=== PATIENT | male | born 1935 | race Caucasian/White ===

== ENCOUNTER 2016-04-07 15:56 | Inpatient (IN) | payer MEDICARE, OTHER ==
--- NOTE | ~2016-04-07 | DS ---
Discharge Summary [facility] [address] [place]. [address] NAME: LILIANA BURGOS JR : 37 STATUS : DIS IN PAT#: [id number] AGE: 80 ADM/REG DATE : 04/07/16 MR#: [id number] REPORT SERV DATE: 04/18/16 DICTATED BY: MARGY DURANT DATE: 04/17/16 REPORT STATUS : Draft TRANSCRIBED BY: JANELLE DATE: 04/17/16 Data Collection from hospitalization DISCHARGE DIAGNOSIS(ES): 1. Left leg pain secondary to left leg cellulitis. 2. Left leg cellulitis. 3. Type 2 insulin-dependent diabetes mellitus - uncontrolled. 4. Thrombocytopenia. 5. Stage III-IV chronic kidney disease. 6. History of gout. 7. Debility with history of wheelchair dependence. 8. Coronary artery disease. 9. Benign prostatic hypertrophy. 10.Chronic obstructive pulmonary disease. 11.Anxiety and depression. 12.Gastroesophageal reflux disease. 13.Hyperlipidemia. 14.History of chronic systolic congestive heart failure - ejection fraction 35%. 15.Abdominal aortic aneurysm. 16.History of fatty liver. 17.History of gout. 18.Bilateral cataract. 19.Past history of tobacco use. CONSULTATIONS: None. PROCEDURES PERFORMED: None. MEDICATIONS: Duricef 1000 mg twice a day, Uloric 40 mg every morning, Lasix 40 mg every morning, Neurontin 800 mg three times a day, Atarax 25 mg every six hours as needed, Lantus 40 units subcutaneously at bedtime, Humalog injection insulin 10 units subcutaneously before meals, Zoloft 50 mg every morning, Hytrin 2 mg three times a day, Ultram 50 mg every six hours as needed, Desyrel 100 mg at bedtime. CONDITION AT DISCHARGE: Stable. DISPOSITION: The patient was discharged home on a mechanical soft/chopped meat/1800-calorie diabetic diet with activities as instructed. He would follow up with his primary care physician in 7-10 days following discharge. HOSPITAL COURSE: This is a 80-year-old man, who presented to the [facility] Emergency Room from home with complaints of left leg pain, left leg cellulitis, and uncontrolled diabetes. The patient has a long history of diabetes and is known to be noncompliant with medical management. He reports that he does give himself insulin before he eats and before going to bed, but does not check his sugar. He had noticed increased thirst and urination. He did report that his left leg pain started about two weeks prior to this admission. He reports that he initially noted redness from the left ankle that travelled up to his left knee. He reported that he has not had any medical provider to evaluate the left leg pain and redness. Discharge Summary [facility] [id number] [place]. [address] NAME: LILIANA BURGOS JR : 37 STATUS : DIS IN PAT#: [id number] AGE: 80 ADM/REG DATE : 04/07/16 MR#: [id number] REPORT SERV DATE: 04/18/16 DICTATED BY: MARGY DURANT DATE: 04/17/16 REPORT STATUS : Draft TRANSCRIBED BY: JANELLE DATE: 04/17/16 The patient reports that his left leg pain was 10/10. He reports the pain was worse with movement and when touch. He reports that he has been wheelchair-bound for several years. He was admitted to the hospital at this time for further evaluation and treatment. Upon admission, left leg x-ray revealed intact left tibia and fibula. Creatinine level was 1.43. Creatinine was 1.22. IV morphine was going to be given as needed for pain control. Gabapentin was going to be given to aid with his neuropathic pain and tramadol for extra mile as needed pain complaints. We would obtain a uric acid level to ensure pain and redness secondary to some kind of gout flare-up. IV antibiotic with Ancef was continued. He was felt to be at risk for sepsis. His home regimen of Humalog and Lantus were continued. He would remain on sliding scale insulin. Hemoglobin A1c was going to be checked. He was placed on an 1800-calorie diabetic mechanical soft diet with chopped food. Nasal cannula O2 would be continued. Lasix would be resumed. On 04/09/2016, he denied any complaints of shortness of breath, chest pain, nausea, vomiting, or abdominal pain. He did complain of left knee pain that was worse with movement, but he said it had been "a little better." The patient said his appetite was not good that morning. Repeat uric acid level was 4.3. His home regimen of Uloric would be continued. He underwent diabetes education. The following day, he was evaluated by Physical Therapy. He said he was feeling better. He did complain of left knee pain with movement, but he could tolerate sitting up in a chair. The patient reports that he has home O2, which he uses as needed. Hemoglobin A1c was 12.3. Discharge planning was performed. On 04/11/2016, he denied any shortness of breath, chest pain, nausea, vomiting, or abdominal pain. He did have a bowel movement. He has left leg pain. Discharge instructions were given. Due to his improved and stable condition, he was discharged home to be followed by home health care with the above-stated instructions. Information collected by: Tangela Williamson I submit the above information as my discharge summary. DUANE/JANELLE Margy Durant M.D. / [id number] CC: Leticia Gray M.D.
--- NOTE | ~2016-04-07 | HP ---
History And Physical [facility] [address] [place]. [address] NAME: LILIANA BURGOS JR : 37 STATUS : ADM IN PAT#: [id number] AGE: 80 ADM/REG DATE : 04/07/16 MR#: [id number] REPORT SERV DATE: 04/08/16 DICTATED BY: MARGY DURANT DATE: 04/08/16 REPORT STATUS : Draft TRANSCRIBED BY: MODJericho DATE: 04/08/16 DATE OF ADMISSION: 04/07/2016 DICTATED BY: Shantal Pappas NP CHIEF COMPLAINT: Left leg pain. HISTORY OF PRESENT ILLNESS: The patient is a 80-year-old male, who was admitted to [facility] Emergency Room from home for complaint of left leg pain, left leg cellulitis, and uncontrolled diabetes. The patient with a long history of diabetes and known to be not compliant with medical management. The patient reports he does give himself insulin before he eats and before going to bed, but does not check his sugar. The patient had noted increase of thirst and urination. The patient reports left leg pain started two weeks ago. He reports he initially had noted redness from his left ankle that had traveled up to his left knee. The patient reports he has not had any medical provider to evaluate his left leg pain and redness. The patient reports his left leg pain in a 0 to 10 pain scale is 10/10. He reports the pain worsened with the movement and when touched. The patient reports he has been wheelchair bound for several years. ALLERGIES: NO KNOWN DRUG ALLERGIES. CODE STATUS: Full code. MEDICATIONS: Home medications include Lantus 35 units subcu at bedtime, Humalog 8 units subcu before meals, Lasix 40 mg p.o. daily, gabapentin 800 mg p.o. three times a day, Atarax 25 mg p.o. every 6 hours p.r.n., Zoloft 50 mg p.o. daily, Hytrin 2 mg capsule three times a day, tramadol 50 mg tablet every 6 hours p.r.n., trazodone 100 mg p.o. at bedtime. Currently also has Ancef 1 g IV q.6 started 04/07/2016. PAST MEDICAL HISTORY: Include: 1. Coronary artery disease with a negative catheterization in 2011 with two stents placed. 2. Chronic kidney disease, stage 3 to 4. 3. 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 4. BPH. 5. COPD with a home O2 use intermittently at 2 L/minute. 6. Anxiety and depression. 7. GERD. 8. Hyperlipidemia. 9. History of chronic systolic congestive heart failure with EF of 35%. 10.History of abdominal aortic aneurysm with last abdomen and pelvis CT scan on 07/30/2015 at [facility] revealing abdominal aortic aneurysm measuring at 32 x 36 mm transversely. The patient reports he is being followed by Dr. Laurent. 11.History of fatty liver, history of gout, history of chelation therapy x4, and history of bilateral cataracts with cataract surgery two years ago. History And Physical [address] [address] NAME: LILIANA BURGOS JR : 37 STATUS : ADM IN [facility]#: [id number] AGE: 80 ADM/REG DATE : 04/07/16 MR#: [id number] REPORT SERV DATE: 04/08/16 DICTATED BY: MARGY DURANT DATE: 04/08/16 REPORT STATUS : Draft TRANSCRIBED BY: JANELLE DATE: 04/08/16 PAST SURGICAL HISTORY: History of cardiac stent x2, bilateral cataract surgery two years ago, penile implant, circumcision, and cholecystectomy. SOCIAL HISTORY: The patient with a history of smoking two pack per day for 50 years, but had quit approximately 9 to 10 years ago. The patient denies any alcohol use. He is and lives alone. He has two children, one had committed suicide and one is living, but the patient reports he has not had any contact with him. The patient reports he lives alone, but a friend lives with him who assists with his care. The patient is an [employer] and right-handed. FAMILY HISTORY: Includes diabetes. No history of stroke or heart disease. REVIEW OF SYSTEMS: The patient denies any problem with dizziness. He denies any complaint of blurred vision. He reports having some dry throat. Had cough with yellow phlegm which he reports this is chronic since he has been diagnosed with COPD approximately 18 years ago. He reports he uses oxygen at home at least 2 L, but he uses it on and off. The patient denies any complaint of shortness of breath, denies complaint of chest pain. The patient reports he does follow a stenotypist, but has not seen him for almost two years. The patient denies any complaint of nausea, vomiting, or abdominal pain. He reports last bowel movement was two days ago. He reports he has average bowel movement about two to three days. He denies any history of constipation. The patient reports he does note he is urinating "too much." The patient also reports having issue with gout, but has not had any gout flare-up. He reports his left leg pain as dictated above had started two weeks ago with redness starting from the ankle to the knees. He is wheelchair dependent. He reports he does have a history of diabetic neuropathy and does take Neurontin for pain relief. The patient reports he had some right hip pain, but this had improved. His main complaint is his left knee pain. PHYSICAL EXAMINATION: VITAL SIGNS: Temperature of 97.9, pulse of 59, BP of 112/60, respiratory rate 16, and O2 saturation at 2 L/minutes of nasal cannula is 96%. Weight on admission 90.29 kg with BMI of 30.3. GENERAL: The patient is a pleasant male in no acute distress noted. HEENT: Normocephalic. Nonicteric bilaterally. PERRL with pupils measuring 2 mm bilaterally. NECK: Moves the neck freely without pain. No pain on palpation. CHEST: No chest deformity noted. LUNGS: Clear to auscultation bilaterally. Nasal cannula O2 in use. CARDIOVASCULAR: Regular rate and rhythm. S1, S2 noted. No murmurs noted or heard. ABDOMEN: Obese. Positive bowel sounds noted. Soft. Nontender. No bruits noted. GENITOURINARY: The patient is noted to have clear yellow urine in urinal. EXTREMITIES: Noted bilateral upper extremities with equal and good strength of 5/5. Some arthritic changes in the hands. Lower extremities: Right lower extremity with good strength of 5/5 with some arthritic changes. No pain on palpation. No edema noted in bilateral lower extremities. Left lower extremity: Left knee pain with movement and History And Physical [address] [address] NAME: LILIANA BURGOS : 37 STATUS : ADM IN [facility]#: [id number] AGE: 80 ADM/REG DATE : 04/07/16 MR#: [id number] REPORT SERV DATE: 04/08/16 DICTATED BY: MARGY DURANT DATE: 04/08/16 REPORT STATUS : Draft TRANSCRIBED BY: JANELLE DATE: 04/08/16 palpation just below the patella. Noted no edema, but redness below the patella laterally. No redness noted past the patella. Ankle is without edema or redness. Strength in left leg is 4/5 likely secondary to pain. IMAGING: Chest x-ray obtained on 04/07/2016 shows COPD without focal air space disease. Left leg x-ray revealed intact left tibia and fibula. LABORATORY DATA: Labs on 04/07/2016 revealed sodium of 131, potassium 4.1, chloride 91, CO2 of 29, BUN 26, creatinine 1.43, GFR 46, glucose of 440. WBC was 7.4, hemoglobin 14.0, hematocrit 40.0, and platelets of 104. AST of 85, ALT of 71, total protein 8.0, bilirubin 0.8, albumin 3.6, and ALP of 110. 04/08/2016 labs revealed sodium better at 138, potassium 3.9, chloride 99, CO2 of 31, BUN 26, creatinine 1.22, and glucose of 251. ASSESSMENT: 1. Left leg pain likely secondary to left leg cellulitis, question if the pain could be related to a gout flare-up versus cellulitis. 2. Left leg cellulitis. 3. Insulin-dependent diabetes mellitus type 2, uncontrolled. 4. Thrombocytopenia. 5. Chronic kidney disease, stage 3 to 4. 6. Hyponatremia, improving. 7. Metabolic alkalosis, mild. 8. Hypoxia, likely chronic secondary to history of chronic obstructive pulmonary disease. 9. History of chronic obstructive pulmonary disease without exacerbation. 10.History of chronic systolic congestive heart failure without exacerbation. 11.History of coronary artery disease, status post cardiac stent. 12.History of abdominal aortic aneurysm. 13.History of gout. 14.Wheelchair dependent. PLAN: 1. Continue pain management at this time with IV morphine p.r.n. We will reconciliate home medications and continue gabapentin to aid with the neuropathic pain and tramadol for extra mild p.r.n. pain complaint. We will obtain uric acid to ensure pain and redness secondary to some kind of gout flare-up. We will refer the patient to PT for evaluation and treatment once pain better controlled. The patient is a wheelchair dependent. The patient is at risk for poor recovery. 2. We will continue current IV antibiotic of Ancef. Monitor lab studies. The patient is at risk for sepsis. 3. We will resume home regimen of Humalog with 8 units subcu q.a.c. and Lantus 35 units q.h.s. Continue sliding scale, and if needed, we will adjust long-acting for better blood sugar control. Check hemoglobin A1c with a.m. labs to see how the patient's diabetes had been controlled in the last three months, likely not well controlled. The patient does have does have issue with compliance with his diabetes. We will refer the History And Physical [address] [place]. [address] NAME: LILIANA BURGOS JR : 37 STATUS : ADM IN [facility]#: [id number] AGE: 80 ADM/REG DATE : 04/07/16 MR#: [id number] REPORT SERV DATE: 04/08/16 DICTATED BY: MARGY DURANT DATE: 04/08/16 REPORT STATUS : Draft TRANSCRIBED BY: JANELLE DATE: 04/08/16 patient to a heating engineer. The patient is at risk for diabetic ketoacidosis. 4. We will closely monitor platelet. Admission platelet was 104, was decreased to 99. We will hold off on any heparin for deep venous thrombosis prophylaxis. We will monitor platelets. If this goes up, we will resume deep venous thrombosis prophylaxis. 5. The patient's admission creatinine was 1.43, better this morning at 1.22. We will continue to monitor renal function. The patient is at risk for acute kidney injury. 6. The patient's admission sodium was 131, repeat this morning was 138. We will hold off on low-sodium diet. We will just continue 1800 ADA diet and mechanical soft and chopped food. If his sodium increases, we will likely need to resume back to low- sodium . The patient is at risk for cardiac arrhythmia. 7. We will continue nasal cannula O2 to keep saturation O2 greater than or equal to 90%. Place the patient on bronchodilator protocol. The patient with negative chest x-ray. We will closely monitor for any signs and symptoms of increased shortness of breath. The patient is at risk for chronic obstructive pulmonary disease exacerbation. 8. We will closely monitor for any lower extremity edema, though the patient on home regimen of Lasix, which we will resume. Monitor weight. The patient is at risk for congestive heart failure exacerbation. 9. Address POLST form with the patient. The patient desires full code. POLST form completed and filed in chart. Monitor for any signs symptoms of acute coronary syndrome. The patient with a history of coronary artery disease, status post stent. The patient is at risk for acute myocardial infarction. 10.Once the patient's acute medical issues resolve or improve, we will plan for discharge back to home and to follow up with primary care physician. RH/MODL Margy Durant M.D. / [id number] CC: Leticia Gray M.D.
[2016-04-07 13:53] LABS: BASOPHILS 0.3 %; BASOPHILS ABSOLUTE 0.02 10/3/uL (0.0-0.16); EOSINOPHILS 2.4 %; EOSINOPHILS ABSOLUTE 0.18 10/3/uL (0.0-0.53); IMMATURE GRANULOCYTES 0.7 %; IMMATURE GRANULOCYTES ABSOLUTE 0.05 10/3/uL (0.0-0.11); LYMPHOCYTES 12.2 %; LYMPHOCYTES ABSOLUTE 0.91 10/3/uL (0.67-4.30); MEAN CORPUSCULAR HEMOGLOB 32.5 pg (26.0-34.0); MEAN CORPUSCULAR VOLUME 92.8 fL (80-100); MEAN PLATELET VOLUME 12.5 fL (9.2-13.0); MONOCYTES 7.3 %; MONOCYTES ABSOLUTE 0.54 10/3/uL (0.21-1.20); NEUTROPHILS 77.1 %; NEUTROPHILS ABSOLUTE 5.74 10/3/uL (2.02-8.40); PLATELET COUNT 104 10/3/uL (150-400); RBC DISTRIBUTION WIDTH 12.3 % (12.0-16.0); RED CELL COUNT 4.31 10/6/uL (4.7-6.1); WHITE BLOOD CELLS 7.4 10/3/uL (4.5-10.5)
[2016-04-07 13:54] LABS: ER CBC TAT 0 Hrs 07 MinsNP; MANUAL DIFF NO %
[2016-04-07 14:09] LABS: A/G RATIO 0.8 (0.7-1.9); ALBUMIN 3.6 G/DL (3.5-5.0); ALKALINE PHOSPHATASE 110 U/L (45-117); BUN (BLOOD UREA NITROGEN) 26 MG/DL (6-23); CALCIUM, SERUM 9.4 MG/DL (8.5-10.4); CHLORIDE, SERUM 91 MMOL/L (96-112); CO2 (CARBON DIOXIDE) 29 MMOL/L (24-34); CREATININE 1.43 MG/DL (0.70-1.30); GFR AFRICAN AMERICAN 54 ML/MIN (>=60); GFR NON AFRICAN AMERICAN 46 ML/MIN (>=60); GLOBULIN 4.4 G/DL (2.5-4.1); GLUCOSE, SERUM 440 MG/DL (60-99); POTASSIUM, SERUM 4.1 MMOL/L (3.5-5.3); SGOT(AST) 85 U/L (5-40); SGPT(ALT) 71 U/L (5-65); SODIUM, SERUM 131 MMOL/L (135-148); TOTAL BILIRUBIN 0.8 MG/DL (0-1.2)
[2016-04-07 15:44] LABS: ACETONE NEG
[~2016-04-07 15:56] MED LIST: *UNABLE1; AMB10 PO; AMB5 PO; ARIMIDEX1 PO; ASAB PO; ATARAX50B PO; AUG500 PO; CASTOR TOP; CIP5 PO; COLCRYS0.6 MG PO; DEPO-TESTOS200 MG/ML IM; DUONEB INH; FIBER PILL PO; GLUCPH PO; HUMALOG SC; HUMALOGPEN SC; HUMALOGPEN SQ; HUMI PO; HYT2 PO; INDO50 PO; KDUR20 PO; KLOR-CON 1010 MEQ PO; KLOR-CON M2020 MEQ PO; L20 PO; L40 PO; LANTUS; LANTUS SC; LANTUSCART SC; LYRICA50 PO; NASAL MOIST0.65 % NAS; NEUR300 PO; NOVOLOG SC; NOVOPEN SC; OTC VITAMIN D PO; PERCOCET1 TA2 PO; PRAVACHOL40 MG PO; PRILOSEC OTC20 MG PO; PRIN5 PO; PROAIR HFA INH; PROTONIX PO; REFRESH OPH; SEPTRA DS1 TAB PO; SPIRIVA INH; TESTOST CYP200 MG/ML IM; TOPXL25 PO; ULORIC40 MG PO; ULTRAM50 PO; VISINE0.05 % OP; VITAMIN D1000 UNI1 PO; VITAMIN D31000 UNIT PO; VITAMIN D400 UNI1 PO; VITC500 PO; VITD PO; ZINC PO; ZOL50 PO; [UNRECOGNIZED DRUG - OTHER] PO; [UNRECOGNIZED DRUG - OTHER] PO; [UNRECOGNIZED DRUG - OTHER] PO; [UNRECOGNIZED DRUG - OTHER] PO; [UNRECOGNIZED DRUG - OTHER] PO; [UNRECOGNIZED DRUG - OTHER] PO; [UNRECOGNIZED DRUG - OTHER] TOP; [UNRECOGNIZED DRUG - REMARK] PO
[2016-04-07] MEDS ORDERED: LANTUS SC (18:55)
[2016-04-07] MEDS ORDERED: *UNABLE1 (18:56)
[2016-04-07] MEDS ORDERED: HUMALOG SC (18:56)
[2016-04-07 19:50] LABS: ASCORBIC ACID (UR NOT ORDER) 20 (NEG); BILIRUBIN, URINE NEGATIVE (NEG); ER URINALYSIS TAT 0 Hrs 19 Mins; KETONE, URINE NEGATIVE (NEG); LEUKOCYTE ESTERASE(NOT OR LARGE (NEG); NITRITE (URINE) POS (NEG)
[2016-04-07 19:51] LABS: WBC (NOT ORDERED) (RFLEX) > 182 (0-5)
[2016-04-07 20:05] LABS: ALLENS TEST Pos; BE (BASE EXCESS) 4.4 MEQ/L (0 +/- 2.5); CARBOXYHEMOGLOBIN 1.7 % (0-3); HCO3 (ACTUAL BICARBONATE) 29.3 MEQ/L (23-27); HEMOBLOGIN CONTENT 13.2 G/DL (14-18); INSTRUMENT SERIAL # 8087; OPERATOR ID 14335; PCO2 (CO2 TENSION) 45 MMHG (35-45); PO2 (O2 TENSION) 65 MMHG (79-93); SAMPLE Arterial; pH 7.43 (7.37-7.43)
[2016-04-08 08:03] LABS: BASOPHILS 0.2 %; BASOPHILS ABSOLUTE 0.01 10/3/uL (0.0-0.16); EOSINOPHILS 3.4 %; EOSINOPHILS ABSOLUTE 0.17 10/3/uL (0.0-0.53); HEMATOCRIT 37.6 % (40.0-51.0); HEMOGLOBIN 12.9 g/dL (13.6-17.8); IMMATURE GRANULOCYTES 0.2 %; IMMATURE GRANULOCYTES ABSOLUTE 0.01 10/3/uL (0.0-0.11); LYMPHOCYTES 19.7 %; LYMPHOCYTES ABSOLUTE 0.98 10/3/uL (0.67-4.30); MEAN CORPUS HGB CONC 34.3 g/dL (32.0-36.0); MEAN CORPUSCULAR HEMOGLOB 32.2 pg (26.0-34.0); MEAN CORPUSCULAR VOLUME 93.8 fL (80-100); MONOCYTES 8.9 %; MONOCYTES ABSOLUTE 0.44 10/3/uL (0.21-1.20); NEUTROPHILS 67.6 %; NEUTROPHILS ABSOLUTE 3.36 10/3/uL (2.02-8.40); PLATELET COUNT 99 10/3/uL (150-400); RBC DISTRIBUTION WIDTH 12.7 % (12.0-16.0); RED CELL COUNT 4.01 10/6/uL (4.7-6.1)
[2016-04-08 08:16] LABS: MANUAL DIFF NO %
[2016-04-08 08:18] LABS: BUN (BLOOD UREA NITROGEN) 25 MG/DL (6-23); CHLORIDE, SERUM 99 MMOL/L (96-112); CO2 (CARBON DIOXIDE) 31 MMOL/L (24-34); CREATININE 1.22 MG/DL (0.70-1.30); GFR AFRICAN AMERICAN 65 ML/MIN (>=60); GFR NON AFRICAN AMERICAN 56 ML/MIN (>=60); GLUCOSE, SERUM 251 MG/DL (60-99); POTASSIUM, SERUM 3.9 MMOL/L (3.5-5.3); SODIUM, SERUM 138 MMOL/L (135-148)
[2016-04-08] MEDS ORDERED: ULORIC40 MG PO (10:28)
[2016-04-08] MEDS ORDERED: HYT2 PO (10:29)
[2016-04-08] MEDS ORDERED: NEUR800 PO (10:29)
[2016-04-08] MEDS ORDERED: L40 PO (10:29)
[2016-04-08] MEDS ORDERED: ZOL50 PO (10:29)
[2016-04-08] MEDS ORDERED: ULTRAM50 PO (10:30)
[2016-04-08] MEDS ORDERED: TRAZ100 PO (10:30)
[2016-04-08] MEDS ORDERED: AT25 PO (10:31)
[2016-04-09 06:22] LABS: BASOPHILS 0.5 %; BASOPHILS ABSOLUTE 0.03 10/3/uL (0.0-0.16); EOSINOPHILS 3.6 %; EOSINOPHILS ABSOLUTE 0.23 10/3/uL (0.0-0.53); HEMATOCRIT 40.3 % (40.0-51.0); HEMOGLOBIN 13.7 g/dL (13.6-17.8); IMMATURE GRANULOCYTES 0.3 %; IMMATURE GRANULOCYTES ABSOLUTE 0.02 10/3/uL (0.0-0.11); LYMPHOCYTES 10.1 %; LYMPHOCYTES ABSOLUTE 0.65 10/3/uL (0.67-4.30); MANUAL DIFF NO %; MEAN CORPUSCULAR HEMOGLOB 32.5 pg (26.0-34.0); MEAN CORPUSCULAR VOLUME 95.7 fL (80-100); MEAN PLATELET VOLUME 12.4 fL (9.2-13.0); MONOCYTES 7.6 %; MONOCYTES ABSOLUTE 0.49 10/3/uL (0.21-1.20); NEUTROPHILS 77.9 %; PLATELET COUNT 115 10/3/uL (150-400); RBC DISTRIBUTION WIDTH 12.9 % (12.0-16.0); RED CELL COUNT 4.21 10/6/uL (4.7-6.1); WHITE BLOOD CELLS 6.4 10/3/uL (4.5-10.5)
[2016-04-09 06:40] LABS: BUN (BLOOD UREA NITROGEN) 25 MG/DL (6-23); CALCIUM, SERUM 9.6 MG/DL (8.5-10.4); CHLORIDE, SERUM 97 MMOL/L (96-112); CO2 (CARBON DIOXIDE) 30 MMOL/L (24-34); CREATININE 1.23 MG/DL (0.70-1.30); GFR AFRICAN AMERICAN 64 ML/MIN (>=60); GFR NON AFRICAN AMERICAN 55 ML/MIN (>=60); GLUCOSE, SERUM 212 MG/DL (60-99); POTASSIUM, SERUM 3.7 MMOL/L (3.5-5.3); SODIUM, SERUM 135 MMOL/L (135-148)
[2016-04-11] MEDS ORDERED: DURICEF PO (14:22)
== END 2016-04-11 14:51 | disposition home health service (06) | DRG 603 ==
LOC: ER 15:56 → 4SO 19:07
PROVIDERS: Family Medicine; Internal Medicine; Nurse Practitioner Family
DX: L03.116 Cellulitis of left lower limb (principal); E87.3 Alkalosis; N18.4 Chronic kidney disease, stage 4 (severe); D69.6 Thrombocytopenia, unspecified; I50.22 Chronic systolic (congestive) heart failure; E11.22 Type 2 diabetes mellitus with diabetic chronic kidney disease; E87.1 Hypo-osmolality and hyponatremia; E11.65 Type 2 diabetes mellitus with hyperglycemia; Z79.4 Long term (current) use of insulin; J44.9 Chronic obstructive pulmonary disease, unspecified; R09.02 Hypoxemia; I25.10 Atherosclerotic heart disease of native coronary artery without angina pectoris; Z95.5 Presence of coronary angioplasty implant and graft; M10.9 Gout, unspecified; Z99.3 Dependence on wheelchair; Z91.14 Patient's other noncompliance with medication regimen; Z91.19 Patient's noncompliance with other medical treatment and regimen; E11.40 Type 2 diabetes mellitus with diabetic neuropathy, unspecified; E11.319 Type 2 diabetes mellitus with unspecified diabetic retinopathy without macular edema; Z99.81 Dependence on supplemental oxygen; F41.9 Anxiety disorder, unspecified; F32.9 Major depressive disorder, single episode, unspecified; K21.9 Gastro-esophageal reflux disease without esophagitis; I71.4 Abdominal aortic aneurysm, without rupture; Z87.891 Personal history of nicotine dependence; R53.81 Other malaise; R30.0 Dysuria
CPT/HCPCS: 36600; 71020; 73590-LT; 80048; 80053; 81001; 82009; 82805; 82962; 83036; 83605; 84550; 85025; 87040; 87086; 93005; 96365; 96375; 97162-GP; 99285; A9270-GY; J0690